=== PATIENT | male | born 1960 | race Caucasian/White ===

== ENCOUNTER 2023-02-02 14:05 | Emergency (ER) | payer OTHER ==
[~2023-02-02] VITALS: Ht 167.6 cm; Wt 104.3 kg
[2023-02-02 14:20] VITALS: BP 135/86; PULSE 90; RESP 15; TEMP 98; O2SAT 95
[2023-02-02] MEDS ORDERED: BACITRACIN OINT 500 UNITS/GM PKT TP ONE ×3 (14:40→14:50)
[2023-02-02] MEDS ORDERED: BACI-418 TP (14:51)
== END 2023-02-02 15:01 | disposition home or self-care (01) ==
LOC: MED 14:05
DX: T23.002A Burn of unspecified degree of left hand, unspecified site, initial encounter (principal); R03.0 Elevated blood-pressure reading, without diagnosis of hypertension; T31.0 Burns involving less than 10% of body surface; X08.8XXA Exposure to other specified smoke, fire and flames, initial encounter; Y93.89 Activity, other specified; Y92.89 Other specified places as the place of occurrence of the external cause; Y99.8 Other external cause status
CPT/HCPCS: 99284